=== PATIENT | female | born 1950 | race Caucasian/White ===

== ENCOUNTER → 2020-03-03 | Outpatient (CLI) | payer MEDICARE | END | disposition home or self-care (01) | LOC: CFH 08:09 | PROVIDERS: ATTEND Specialist | DX: J34.2 Deviated nasal septum (principal); J31.0 Chronic rhinitis; J32.9 Chronic sinusitis, unspecified; J34.89 Other specified disorders of nose and nasal sinuses; G47.30 Sleep apnea, unspecified | CPT/HCPCS: 70486 ==